=== PATIENT | female | born 1940 | race Asian ===

== ENCOUNTER 2022-08-03 22:29 | Inpatient (IN) | payer MEDICARE, OTHER ==
[~2022-08-03] VITALS: Ht 154.9 cm; Wt 58.1 kg
[2022-08-03 23:34] LABS: HEMATOCRIT 32.6 % (31.2-41.9); MEAN CORPUSCULAR VOLUME 98.3 fL (75.5-95.3); PLATELET COUNT (AUTO) 250 K/uL (179-408)
[2022-08-03 23:39] LABS: CARBON DIOXIDE 28 mmol/L (21-32); CHLORIDE 101 mmol/L (98-107); CREATININE 0.8 mg/dL (0.6-1.3); GLUCOSE 120 mg/dL (74-106); POTASSIUM 3.8 mmol/L (3.5-5.1); UREA NITROGEN, BLOOD 15 mg/dL (7-18)
--- NOTE | 2022-08-03 23:57 | NUR ---
Patient placed in room 2b at this time.
[2022-08-04 00:09] LABS: MAGNESIUM 1.9 mg/dL (1.8-2.4)
--- NOTE | 2022-08-04 00:31 | NUR ---
Patient resting in bed, placed on monitor, informed of plan of care and awaiting MD exam. No s/s of any distress noted at this time. side rails up, will continue with frequent monitoring.
--- NOTE | 2022-08-04 01:30 | NUR ---
Medically cleared by Dr Watkins. Called Ayad Castillo from [facility] who will come eval patient.
--- NOTE | 2022-08-04 01:59 | NUR ---
Patient continues to rest without c/o paqin or discomfort, assisted into position of comfort. will continue to monitor.
--- NOTE | 2022-08-04 02:17 | NUR ---
Pet eval in progress at this time.
--- NOTE | 2022-08-04 02:22 | NUR ---
Ayad Castillo from [facility] placed patient on hold for 5150 GD.
--- NOTE | 2022-08-04 03:09 | NUR ---
Patient continues to rest without c/o or s/s of any distress. Repositioned for comfort.
[2022-08-04] MEDS ORDERED: ASPI81TA31 PO (03:16)
[2022-08-04] MEDS ORDERED: METH1TAB69 PO (03:16)
[2022-08-04] MEDS ORDERED: OXYB5SYR2 PO (03:16)
[2022-08-04] MEDS ORDERED: VALS40TA4 PO (03:16)
[2022-08-04] MEDS ORDERED: AZEL137S7 NS (03:16)
[2022-08-04] MEDS ORDERED: ACET-2154 PO (03:16)
[2022-08-04] MEDS ORDERED: MAG HYDROX/AL HYDROX/SIMETH 30 ML LIQUID UDC PO PRN (04:00)
[2022-08-04] MEDS ORDERED: ACETAMINOPHEN 325 MG TABLET PO PRN (04:00)
[2022-08-04] MEDS ORDERED: TEMAZEPAM 7.5 MG CAPSULE PO PRN (04:00)
[2022-08-04] MEDS ORDERED: CLONAZEPAM 0.5 MG TABLET PO SCH (04:00)
[2022-08-04] MEDS ORDERED: MAGNESIUM HYDROXIDE 30 ML LIQUID UDC PO PRN (04:00)
--- NOTE | 2022-08-04 04:20 | NUR ---
Patient transfered to MHU via gurny with no distress noted.
[2022-08-04 04:45] VITALS: BP 148/77
--- NOTE | 2022-08-04 05:57 | NUR ---
Patient is a 82 year old female, brought to the ED from [facility]. The patient was put on a 5150 for GD. Per hold, the patient lives at home and has had a increase in confusion, sings all the time and unable to provide food or jail for herself due to a mental disorder. Upon face to face evaluation, the patient is pleasantly confused and disoriented. Poor communication skills , poor historian and poor impulse control. With assistance the patient was able to ambulate to the bed, but is incontinent of urine and wears a diaper. Medical history per the chart states Dementia, anxiety and Hypertension. VS on admit were stable. A Patients rights handbook and the Patients Advisement were provided. Safety Stratiges are in place at this time. Reorientation and reassurance ongoing as needed ,along with assistance with ADLs.
[2022-08-04] MEDS ORDERED: CLONAZEPAM 0.5 MG TABLET PO PRN (06:45)
[2022-08-04 07:30] VITALS: BP 147/93
--- NOTE | 2022-08-04 11:13 | NUR ---
SW Family Contact: SW spoke with pt's daughter/DPOA, Yolanda regarding pt's discharge plan. Yolanda stated she can no longer provide home care for her mother and asked this SW to help place pt in a snf upon discharge. Yolanda asked this SW to refer pt to [facility] where pt has previously been admitted to in the past. SW will refer pt and continue to update Yolanda regarding pt's treatment and discharge as needed. Yolanda was grateful and agreeable.
[2022-08-04] MEDS: DIVALPROEX SPRINKLE 125 MG CAP.SPRINK PO SCH ×2 (12:30→20:13)
--- NOTE | 2022-08-04 14:47 | NUR ---
Received patient awake in the hallway. Patient is A/O X 1 to person. Patient is confused, suspicious with medications, combative and agitated at times. Patient refuses medications. Ambulates with assistance, unsteady gait. Patient is incontinent. Reality orientation provided. Fall and safety precautions implemented.
--- NOTE | 2022-08-04 15:11 | NUR ---
SW Initial Discharge Note: Pt currently resides at home with her daughter, Yolanda ([phone]) and a 24 hour caregiver at [id number] [place] [address]. Per Yolanda, she can no longer provide this care for her mother and asked this SW to help place pt in a fci upon discharge. Yolanda asked this SW to refer pt to [facility] where pt has previously been admitted to in the past. This SW will continue to work with pt, family and MD to ensure a safe and proper discharge plan.
--- NOTE | 2022-08-04 15:24 | NUR ---
Firearms Report: Lumber Grader completed and submitted a [employer] firearms report for 5150 grave disability certifications. A copy of report has been placed in patient chart.
[2022-08-04 16:00] VITALS: BP 158/84
[2022-08-04] MEDS ORDERED: hydrALAZINE HCL 10 MG TABLET PO ONE (19:58)
--- NOTE | 2022-08-04 20:00 | NUR ---
GPS: Celeste SANDRA was made aware of pt's elevated B/P at this time. Also informed her that med.recon.has to be done.
[2022-08-04 20:14] VITALS: BP 179/86
--- NOTE | 2022-08-05 06:24 | NUR ---
GPS: Pt. slept for only 2 hrs.last night despite receiving a sleeping pill and med.for anxiety. Pt.was anxious,talking to self during the night. No combative behavior noted. Incontinence care rendered prn. Fall precautions observed. Re-directed prn. Will continue to monitor.
[2022-08-05 07:30] VITALS: BP 150/77
[2022-08-05] MEDS: DIVALPROEX SPRINKLE 125 MG CAP.SPRINK PO SCH ×2 (08:50→21:04)
--- NOTE | 2022-08-05 13:59 | NUR ---
Dr. Shai Philippe was called at [phone] to be informed about this new admission assigned to him, and was asked to reconcile patient's home medications. Dr. Gibbons is the Technical Artist for this patient, not Dr. Thomason.
--- NOTE | 2022-08-05 14:49 | NUR ---
Received patient awake in the hallway. Patient is A/O X 1 to person. Patient is confused, forgetful, disoriented, disorganized. Patient is compliant with medications. Patient ambulates with assistance, unsteady gait. Patient's diet is changed to Puree by daughter's request. Reassurance given. Fall and safety precautions implemented.
[2022-08-05 16:00] VITALS: BP 130/63
[2022-08-05] MEDS ORDERED: ACETAMINOPHEN 325 MG TABLET-SA PATIENTS-PAIN ONLY PO PRN (17:15)
[2022-08-05 20:07] VITALS: BP 92/51
[2022-08-06 07:30] VITALS: BP 137/71
[2022-08-06] MEDS: OXYBUTYNIN CHLORIDE 5 MG TABLET PO SCH ×2 (08:56→17:07)
[2022-08-06] MEDS: DIVALPROEX SPRINKLE 125 MG CAP.SPRINK PO SCH (08:56)
[2022-08-06] MEDS: ASPIRIN 81 MG TAB.CHEW PO SCH (08:56)
[2022-08-06] MEDS: VALSARTAN 40 MG TABLET PO SCH (08:57)
--- NOTE | 2022-08-06 12:22 | NUR ---
BETHANIE Family Contact: SW spoke with pt's daughter/DPOA, Yolanda ([phone]) in person during visitation. Yolanda verbalized that she does not want the pt to take psychotropic medications and would like to speak to the psychiatrist regarding discharge at the end of the 72 hour hold. Yolanda is aware that the pt will need a safe discharge plan confirmed prior to the 72 hour hold ending. Yolanda asked for pt to be discharged to [facility] [address] [place] [id number] F:[phone] upon discharge. This SW stated she will fax clinicals and update Yolanda and Dr. Nguyễn regarding acceptance status. Yolanda was grateful. SW stated Dr. Nguyễn is aware of Yolanda's request to speak to her and stated he will call her. Yolanda was grateful.
--- NOTE | 2022-08-06 12:28 | NUR ---
SNF Referral: SW faxed patient's referral packet including: History and Physical, Consultation, Progress Notes, Medication List and Labs to the following facilities for review and possible care home placement: [facility] and [facility] ([phone]) F:[phone] BETHANIE spoke with Sun in admissions. Bethanie informed Sun that pt's daughter/DPOA, Yolanda ([phone]) would like the pt to discharge to their location upon discharge.
[2022-08-06] MEDS ORDERED: CARBIDOPA/LEVODOPA 25-100MG TAB.RAPDIS PO SCH (14:00)
--- NOTE | 2022-08-06 14:28 | NUR ---
BETHANIE Discharge Update: BETHANIE spoke with Sun in admissions at [facility] ([phone]) F:[phone] who stated that pt is accepted to their facility upon discharge. BETHANIE informed pt's psychiatrist, Dr. Nguyễn.
[2022-08-06] MEDS: CARBIDOPA/LEVODOPA 25-100MG TABLET PO SCH ×2 (14:34→17:07)
--- NOTE | 2022-08-06 15:26 | NUR ---
patient is confused and disoriented Frisian speaking only , able to ambulates with unsteady gait .patient compliant with all po medication ,patient with poor insight and poor judgement ,keep patient up to Zari-chair near to nurse station for close monitoring.
[2022-08-06 16:00] VITALS: BP 110/42
[2022-08-06 21:02] VITALS: BP 91/45
[2022-08-07] MEDS: OXYBUTYNIN CHLORIDE 5 MG TABLET PO SCH (08:07)
[2022-08-07] MEDS: ASPIRIN 81 MG TAB.CHEW PO SCH (08:07)
[2022-08-07] MEDS: CARBIDOPA/LEVODOPA 25-100MG TABLET PO SCH (08:07)
[2022-08-07 08:08] VITALS: BP 113/80
[2022-08-07] MEDS: VALSARTAN 40 MG TABLET PO SCH (08:08)
--- NOTE | 2022-08-07 11:00 | NUR ---
Discharged patient to [facility] via Ambulance at 11AM, patient is alert and oriented x1 to her name only,ambulates with unsteady gait ,vital sign stable, denies any pain or discomfort at this time.report called in to Dottie WEBB @[phone] .
== END 2022-08-07 11:00 | DRG 885 ==
LOC: ER 22:29 → GPS 08-04 02:22
PROVIDERS: ADMIT Psychiatry & Neurology Psychosomatic Medicine; ATTEND Internal Medicine
DX: F39 Unspecified mood [affective] disorder (principal); N39.0 Urinary tract infection, site not specified; F02.83 Dementia in other diseases classified elsewhere, unspecified severity, with mood disturbance; G20 Parkinson's disease; I10 Essential (primary) hypertension; G30.9 Alzheimer's disease, unspecified; Z88.0 Allergy status to penicillin; Z87.440 Personal history of urinary (tract) infections; Z20.822 Contact with and (suspected) exposure to COVID-19
CPT/HCPCS: 36415; 83735; 85025; J8499